=== PATIENT | male | born 1975 | race Caucasian/White ===

== ENCOUNTER 2019-04-10 02:44 | Emergency (ER) | payer OTHER ==
[~2019-04-10] VITALS: Ht 177.8 cm; Wt 90.3 kg
[2019-04-10 02:52] VITALS: Ht 177.8 cm; Wt 90.3 kg
--- NOTE | 2019-04-10 04:26 | ERD ---
ER Documentation Chief Complaint Chief Complaint LEFT SIDED CHEST PAIN, 4/10 NON RADIATING, "PRESSURE" X 2 DAYS. HPI Is a 43-year-old male with a left-sided chest pain 4 out of 10 nonradiating for 2 days. He said it is reproducible to the touch. Is worse when he lays on the left side. Pain is mild to moderate intensity. No fevers or chills. No other current complaints. ROS All systems reviewed and are negative except as per history of present illness. Allergies Allergies: Coded Allergies: No Known Allergy (Unverified , 04/10/19) PMhx/Soc Medical and Surgical Hx: pt denies Medical Hx, pt denies Surgical Hx Hx Alcohol Use: No Hx Substance Use: No Hx Tobacco Use: Yes (2-3/day) Smoking Status: Current every day smoker Physical Exam Vitals Vital Signs Date Temp Pulse Resp B/P (MAP) Pulse Ox O2 O2 Flow FiO2 Time Delivery Rate 04/10/19 73 18 147/115 98 Room Air 03:39 (126) 04/10/19 97.5 85 16 149/103 100 02:52 (118) Physical Exam Const: No acute distress Head: Atraumatic Eyes: Normal Conjunctiva ENT: Normal External Ears, Nose and Mouth. Neck: Full range of motion. No meningismus. Resp: Clear to auscultation bilaterally Cardio: Regular rate and rhythm, no murmurs Abd: Soft, non tender, non distended. Normal bowel sounds Skin: No petechiae or rashes Back: No midline or flank tenderness Ext: No cyanosis, or edema Neur: Awake and alert Psych: Normal Mood and Affect Result Diagram: 04/10/19 0320 04/10/19 0320 Results 24 hrs Laboratory Tests Test 04/10/19 03:20 White Blood Count 8.0 10^3/ul Red Blood Count 5.07 10^6/ul Hemoglobin 14.3 g/dl Hematocrit 41.1 % Mean Corpuscular Volume 81.1 fl Mean Corpuscular Hemoglobin 28.2 pg Mean Corpuscular Hemoglobin Concent 34.8 g/dl Red Cell Distribution Width 12.7 % Platelet Count 213 10^3/UL Mean Platelet Volume 10.8 fl Immature Granulocytes % 0.200 % Neutrophils % 61.9 % Lymphocytes % 27.2 % Monocytes % 7.7 % Eosinophils % 2.4 % Basophils % 0.6 % Nucleated Red Blood Cells % 0.0 /100WBC Immature Granulocytes # 0.020 10^3/ul Neutrophils # 5.0 10^3/ul Lymphocytes # 2.2 10^3/ul Monocytes # 0.6 10^3/ul Eosinophils # 0.2 10^3/ul Basophils # 0.1 10^3/ul Nucleated Red Blood Cells # 0.0 10^3/ul Sodium Level 144 mmol/L Potassium Level 3.9 mmol/L Chloride Level 108 mmol/L Carbon Dioxide Level 26 mmol/L Anion Gap 10 Blood Urea Nitrogen 17 mg/dl Creatinine 0.91 mg/dl Est Glomerular Filtrat Rate mL/min > 60 mL/min Glucose Level 113 mg/dl Calcium Level 9.8 mg/dl Troponin I < 0.012 ng/ml Procedures/MDM EKG: Rate/Rhythm: [Normal Sinus Rhythm] QRS, ST, T-waves: [No changes consistent w/ acute ischemia] Impression: [No evidence of ischemia or arrhythmia] Chest X-ray 1V Interpreted by me: Soft Tissue: No acute abnormalities Bones: No acute abnormalities Mediastinum/Cardiac Silhouette/Lungs: [No acute abnormalities] Patient's thoracic symptoms have stabilized while in the department and are stable for outpatient follow up. Exam and work up not consistent w/ ischemia, arrhythmia, PE or dissection. Departure Diagnosis: Primary Impression: Chest pain Chest pain type: unspecified Qualified Codes: R07.9 - Chest pain, unspecified Condition: Stable JOAQUINA MCKINNEY April 10, 2019 04:26
[2019-04-10 05:00] VITALS: BP 141/95; PULSE 71; RESP 16
--- NOTE | 2019-04-12 14:48 | RADRPT ---
Vent Rate: 80 bpm RR Interval: 0 msec [place] Interval: 172 msec QRS Duration: 72 msec QT Interval: 372 msec QTC Interval: 429 msec P-R-T [place]: 48 - 44 - 57 degrees Sinus rhythm with premature supraventricular complexes Low voltage QRS Borderline ECG Electronically Signed By: [facility]
== END 2019-04-10 05:13 | disposition home or self-care (01) ==
LOC: E/R 02:44
DX: R07.9 Chest pain, unspecified (principal); F17.210 Nicotine dependence, cigarettes, uncomplicated
CPT/HCPCS: 36415; 71045; 80048; 84484; 85025; 93005; Z7502